=== PATIENT | female | born 1995 | race Caucasian/White ===

== ENCOUNTER → 2020-06-11 10:10 | Outpatient (CLI) | payer SELFPAY ==
[2020-06-11 12:04] LABS: Estradiol, Total 1179.3 pg/mL
== END ==
PROVIDERS: Referring Provider Specialist; Visit Provider Specialist
DX: O09.811 Supervision of pregnancy resulting from assisted reproductive technology, first trimester (principal)
CPT/HCPCS: 36415; 82670; 84144; 84702

== ENCOUNTER → 2020-06-13 07:04 | Outpatient (CLI) | payer SELFPAY ==
[2020-06-13 07:49] LABS: HCG Quantitative /Beta subunit 1396.6 mIU/mL
== END ==
PROVIDERS: Referring Provider Specialist; Visit Provider Specialist
DX: O09.811 Supervision of pregnancy resulting from assisted reproductive technology, first trimester (principal)
CPT/HCPCS: 36415; 84702